=== PATIENT | female | born 1990 | race Caucasian/White ===

== ENCOUNTER 2019-02-09 14:36 | Inpatient (IN) | payer OTHER ==
--- NOTE | 2019-02-09 16:44 | HP ---
COWS - Scale Resting Pulse: 0= [place] 80 or Below Sweatin=Flushed/Facial Moisture Restless Observation: 1= Difficult to Sit Still Pupil Size: 1= Pupils >than Normal Bone or Joint Aches: 1= Mild Discomfort Runny Nose/ Eye Tearin= Runny Nose/Eyes GI Upset > 30mins: 3= Vomiting/Diarrhea Tremor Observation: 1= Tremor [place], Not Seen Yawning Observation: 0= None Anxiety or Irritability: 2=Irritable/Anxious Goose Flesh Skin: 0=Smooth Skin COWS Score: 13 CIWA Score - Admission Criteria [facility]ASAS Guidelines: Admission for Medically Managed Detox: Requires at least one of the followin. CIWA greater than 12 2. Seizures within the past 24 hours 3. Delirium tremens within the past 24 hours 4. Hallucinations within the past 24 hours 5. Acute intervention needed for co occurring medical disorder 6. Acute intervention needed for co occurring psychiatric disorder 7. Severe withdrawal that cannot be handled at a lower level of care (continued vomiting, continued diarrhea, abnormal vital signs) requiring intravenous medication and/or fluids 8. Admission ROS [facility] Chief Complaint: " I am trying to come off heroin" Allergies/Adverse Reactions: Allergies Allergy/AdvReac Type Severity Reaction Status Date / Time No Known Allergies Allergy Verified 02/09/19 16:07 History of Present Illness: 28 yo female with hx heroin (nasal), nicotine and marijuana dependence is here seeking detox, this first time seeking treatment. Reports started using heroin for a year and has not had any period of sobriety. Reports hx of overdose x1 in 03/2018. Denies hx of seizures. Exam Limitations: No Limitations - Ebola screening Have you traveled outside of the country in the last 21 days: No Have you had contact with anyone from an Ebola affected area: No Do you have a fever: No - Review of Systems Constitutional: Chills, Loss of Appetite, Changes in sleep, Unintentional Wgt. Loss EENT: reports: Tearing, Other (runny nose) Respiratory: reports: No Symptoms reported Cardiac: reports: Chest Pain (CP when anxious no CP at this time) GI: reports: Diarrhea, Poor Appetite, Poor Fluid Intake, Indigestion : reports: Other (amenorrhea) Musculoskeletal: reports: Joint Pain Integumentary: reports: No Symptoms Reported Neuro: reports: No Symptoms reported Endocrine: reports: Increased Thirst Hematology: reports: No Symptoms Reported Psychiatric: reports: Anxious, Depressed ( of two family members in the past year) Other Systems: Reviewed and Negative Patient History - Patient Medical History Hx Anemia: No Hx Asthma: No Hx Chronic Obstructive Pulmonary Disease (COPD): No Hx Cancer: No Hx Cardiac Disorders: No Hx Congestive Heart Failure: No Hx Hypertension: No Hx Hypercholesterolemia: No Hx Pacemaker: No HX Cerebrovascular Accident: No Hx Seizures: No Hx Dementia: No Hx Diabetes: No Hx Gastrointestinal Disorders: No Hx Liver Disease: No Hx Genitourinary Disorders: No Hx Sexually Transmitted Disorders: No Hx Renal Disease (ESRD): No Hx Thyroid Disease: No Hx Human Immunodeficiency Virus (HIV): No Hx Hepatitis C: No Hx Depression: Yes Hx Suicide Attempt: No Hx Bipolar Disorder: No Hx Schizophrenia: No - Patient Surgical History Past Surgical History: Yes Other Surgical History: left wrist sx - PPD History Previous Implant?: No Documented Results: Negative w/o proof PPD to be Administered?: Yes - Reproductive History Patient is a Female of Child Bearing Age (11 -55 yrs old): Yes (Amenorrhea for one year ) Patient : No - Smoking Cessation Smoking history: Current every day smoker Have you smoked in the past 12 months: Yes Aproximately how many cigarettes per day: 20 Hx Chewing Tobacco Use: No Initiated information on smoking cessation: Yes 'Breaking Loose' booklet given: 02/09/19 - Substance & Tx. History Hx Alcohol Use: No Substance Use Type: Heroin, Marijuana Hx Substance Use Treatment: No - Substances abused Heroin Substance route: Inhalation Frequency: Daily Amount used: 1 bundle Age of first use: 27 Date of last use: 02/09/19 Marijuana/Hashish Substance route: Smoking Frequency: Daily Amount used: 4 -5 blunts Age of first use: 12 Date of last use: 02/09/19 Family Disease History - Family Disease History Family Disease History: CA: Grandparent (breast CA), Other: Father ( diverticulosis) Admission Physical Exam [facility] - Vital Signs Vital Signs: Vital Signs - 24 hr 02/09/19 16:12 Temperature 98.6 F Pulse Rate 110 H Respiratory 16 Rate Blood Pressure 94/56 L - Physical General Appearance: Yes: Appropriately Dressed, Mild Distress, Thin, Sweating, Anxious HEENTM: Yes: EOMI, Hearing grossly Normal, Normal ENT Inspection, Normocephalic , Normal Voice, ESTELLA, Pharynx Normal, Tm's normal, Rhinorrhea Respiratory: Yes: Chest Non-Tender, Lungs Clear, Normal Breath Sounds, No Respiratory Distress, No Accessory Muscle Use Neck: Yes: Within Normal Limits Breast: Yes: Breast Exam Deferred Cardiology: Yes: Regular Rhythm, Tachycardia Abdominal: Yes: Normal Bowel Sounds, Non Tender, Flat, Soft Genitourinary: Yes: Within Normal Limits Back: Yes: Normal Inspection Musculoskeletal: Yes: full range of Motion, Gait Steady, Pelvis Stable, Muscle Pain Extremities: Yes: Normal Capillary Refill, Normal Inspection, Normal Range of Motion, Non-Tender Neurological: Yes: education assistant II-XII NML intact, Fully Oriented, Alert, Motor Strength 5/5, Depressed Affect Integumentary: Yes: Normal Color, Clammy Lymphatic: Yes: Within Normal Limits - Diagnostic (1) Opioid dependence with withdrawal Current Visit: Yes Status: Acute (2) Nicotine dependence Current Visit: Yes Status: Acute Qualifiers: Nicotine product type: cigarettes (3) Depressed mood Current Visit: Yes Status: Acute Cleared for Admission [facility] - Detox or Rehab [facility] Level of Care: Medically Managed Detox Regimen/Protocol: Methadone Breathalyzer - Breathalyzer Breathalyzer: 0 POC Urine test - Test device test lot number: [id number] Expiration date: 07/09/20 - Control test control: Yes - Result Urine Test Results: Negative - NO line present Urine Drug Screen - Test Device Lot number: [id number] Expiration date: 10/08/20 - Control Is test valid?: Yes - Results Drug screen NEGATIVE: No Urine drug screen results: THC-Marijuana, MOP-Opiates Inpatient Rehab Admission - Rehab Decision to Admit Inpatient rehab admission?: No
[2019-02-09] MEDS ORDERED: NICOTINE POLACRILEX 2 MG GUM BUC PRN (17:06)
[2019-02-09] MEDS ORDERED: MAG HYDROX/AL HYDROX/SIMETH 30 ML UNIT-DOSE CUP PO PRN (17:06)
[2019-02-09] MEDS ORDERED: MAGNESIUM CITRATE 300 ML BOTTLE PO PRN (17:06)
[2019-02-09] MEDS ORDERED: ACETAMINOPHEN 325 MG TABLET (FP) PO PRN ×2 (17:06)
[2019-02-09] MEDS ORDERED: BISMUTH SUBSALICYLATE 524 MG/30 ML UD PO PRN (17:06)
[2019-02-09] MEDS ORDERED: MAGNESIUM HYDROX 2400MG/30ML ORAL SUSPENSION 30 ML CUP PO PRN (17:06)
[2019-02-09] MEDS ORDERED: METHOCARBAMOL 500 MG TABLET PO PRN (17:06)
[2019-02-09] MEDS ORDERED: MENTHOL/PHENOL 1 EACH UD MM PRN (17:06)
[2019-02-09] MEDS ORDERED: IBUPROFEN 400 MG TABLET (FP) PO PRN (17:06)
[2019-02-09] MEDS ORDERED: MELATONIN 5 MG TABLETS PO PRN (17:06)
[2019-02-09] MEDS ORDERED: METHADONE HCL 10 MG TABLET (FOR DETOX USE ONLY) PO ONE ×2 (17:45→23:00)
[2019-02-09] MEDS: diazePAM 5 MG TABLET PO PRN ×2 (18:16→22:09)
[2019-02-09] MEDS ORDERED: THIAMINE HCL 100 MG TABLET (FP) PO SCH (22:00)
[2019-02-10] MEDS ORDERED: PRENATAL VITAMINS W/ FOLIC ACID TABLET (FP) PO SCH (10:00)
[2019-02-10] MEDS ORDERED: METHADONE HCL 5 MG TABLET (FOR DETOX USE ONLY) PO ONE (10:00)
[2019-02-10] MEDS ORDERED: NICOTINE 14 MG/24 HOURS TOPICAL PATCH TD SCH (10:00)
--- NOTE | 2019-02-10 10:05 | PN ---
[facility] COWS - Scale Resting Pulse: 0= [place] 80 or Below Sweatin=Flushed/Facial Moisture Restless Observation: 1= Difficult to Sit Still Pupil Size: 0= Normal to Room Light Bone or Joint Aches: 2= Severe Diffuse Aches Runny Nose/ Eye Tearin= Nasal Congestion GI Upset > 30mins: 0= None Tremor Observation of Outstretched Hands: 2= Slight Tremor Visible Yawning Observation: 2= >3x During Session Anxiety or Irritability: 2=Irritable/Anxious Goose Flesh Skin: 0=Smooth Skin COWS Score: 12 BHS Progress Note (SOAP) Subjective: shakes sweats body aches interrupted sleep irritable Objective: 02/10/19 10:04 Vital Signs Temperature 96.6 F L 02/10/19 07:50 Pulse Rate 50 L 02/10/19 07:50 Respiratory Rate 16 02/10/19 07:50 Blood Pressure 101/61 02/10/19 07:50 O2 Sat by Pulse Oximetry (%) labs pending [id number] ambulating no acute distress Assessment: 02/10/19 10:05 withdrawal sx Plan: continue detox increase fluids
[2019-02-10] MEDS: diazePAM 5 MG TABLET PO PRN (10:20)
[2019-02-10 10:24] LABS: ALBUMIN 3.8 g/dl (3.4-5.0); ALK PHOS 83 U/L (45-117); ANION GAP 6 MMOL/L (8-16); BILIRUBIN,TOTAL 0.3 mg/dL (0.2-1); BLOOD UREA NITROGEN 11 mg/dL (7-18); CALCIUM 9.4 mg/dL (8.5-10.1); CHLORIDE 107 mmol/L (98-107); CO2 29 mmol/L (21-32); CREATININE 0.6 mg/dL (0.55-1.3); GLUCOSE,RANDOM 95 mg/dL (74-106); POTASSIUM 4.6 mmol/L (3.5-5.1); SGOT/AST 15 U/L (15-37); SGPT/ALT 16 U/L (13-61); SODIUM 142 mmol/L (136-145); TOT PROT 6.4 g/dl (6.4-8.2)
[2019-02-10 10:26] LABS: HEMATOCRIT 39.9 % (32.4-45.2); HEMOGLOBIN 13.7 GM/dL (10.7-15.3); MCH 30.7 pg (25.7-33.7); MCHC 34.2 g/dl (32.0-36.0); MEAN CELL VOLUME 89.8 fl (80-96); MEAN PLT VOLUME 9.1 fl (7.5-11.1); PLATELET COUNT 194 K/MM3 (134-434); RBC 4.45 M/mm3 (3.60-5.2); RDW 11.9 % (11.6-15.6); WHITE BLOOD COUNT 6.1 K/mm3 (4.0-10.0)
[2019-02-10 10:27] VITALS: BP 103/72; PULSE 69; TEMP 98.4
--- NOTE | 2019-02-10 10:54 | PN ---
S Progress Note Note: Pt is cursing and stating she is leaving refusing to complete detox. all disciplines involved to assist patient but pt insisting on leaving. Pt signed out AMA.
--- NOTE | 2019-02-10 10:55 | DS ---
[facility] Detox Discharge Summary Admission Date: 02/09/19 - History Present History: Opioid Dependence - Physical Exam Results Vital Signs: Vital Signs Temperature 98.4 F 02/10/19 10:24 Pulse Rate 69 02/10/19 10:24 Respiratory Rate 02/10/19 10:24 Blood Pressure 103/72 02/10/19 10:24 O2 Sat by Pulse Oximetry (%) - Treatment Hospital Course: Discharged Condition Good - Medication Discharge Medications: Ambulatory Orders NK [No Known Home Medication] 02/09/19 - Diagnosis (1) Depressed mood Current Visit: Yes Status: Acute (2) Nicotine dependence Current Visit: Yes Status: Chronic Qualifiers: Nicotine product type: cigarettes Substance use status: uncomplicated Qualified Code(s): F17.210 - Nicotine dependence, cigarettes, uncomplicated (3) Opioid dependence with withdrawal Current Visit: Yes Status: Chronic - AMA Did Patient Leave Against Medical Advice: Yes
--- NOTE | 2019-02-10 11:50 | EKG ---
Test Reason : Blood Pressure : / mmHG Vent. Rate : 047 BPM Atrial Rate : 047 BPM P-R Int : 148 ms QRS Dur : 080 ms QT Int : 424 ms P-R-T Axes : 048 082 069 degrees QTc Int : 375 ms POOR DATA QUALITY, INTERPRETATION MAY BE ADVERSELY AFFECTED SINUS BRADYCARDIA OTHERWISE NORMAL ECG NO PREVIOUS ECGS AVAILABLE Confirmed by ELKE MURRAY, ETHEL ([id number]) on 02/10/2019 11:49:48 AM Referred By: Confirmed By:ETHEL BEDOYA MD
[2019-02-11] MEDS ORDERED: METHADONE HCL 10 MG TABLET (FOR DETOX USE ONLY) PO ONE (10:00)
[2019-02-12] MEDS ORDERED: METHADONE HCL 5 MG TABLET (FOR DETOX USE ONLY) PO ONE (06:00)
== END 2019-02-10 11:04 | disposition left against medical advice (07) | DRG 770 ==
LOC: YASAS 14:36 → Y6N 17:32
PROVIDERS: ADMIT Surgery; ATTEND Surgery
PROC: HZ2ZZZZ Detoxification Services for Substance Abuse Treatment (ICD-10-PCS; principal; 2019-02-09)
DX: F11.23 Opioid dependence with withdrawal (principal); F17.210 Nicotine dependence, cigarettes, uncomplicated; F32.9 Major depressive disorder, single episode, unspecified; R00.0 Tachycardia, unspecified
CPT/HCPCS: 36415; 80053; 85027; 86593; 87389; 93005; 93010